=== PATIENT | female | born 1960 | race Caucasian/White ===

== ENCOUNTER 2018-06-13 00:09 | Emergency (ER) | payer OTHER ==
[2018-06-13] MEDS ORDERED: oxyCODONE TAB* 5 MG TAB PO ONE (00:32)
[2018-06-13] MEDS ORDERED: Diazepam TAB(*) 5 MG PO ONE (00:33)
--- NOTE | 2018-06-13 01:25 | ED ---
Back Pain - HPI Summary HPI Summary: Patient complains of coughing tonight and hearing a pop in her right side with subsequent pain all along her right side and right back. Denies any other symptoms pain or injury. Medical history is COPD, fibromyalgia, arthritis, chronic back pain, DM. - History of Current Complaint Chief Complaint: EDGeneral Stated Complaint: GENERAL ILLNESS Time Seen by Provider: 06/13/18 00:19 Hx Obtained From: Patient Onset/Duration: Sudden Onset Onset/Duration: Started Hours Ago Timing: Constant Back Pain Location: Is Discrete @ Severity Initially: Severe Severity Currently: Severe Pain Intensity: 10 Pain Scale Used: 0-10 Numeric Character: Sharp, Aching, Throbbing Aggravating Symptom(s): Movement Associated Signs And Symptoms: Positive: Negative - Allergies/Home Medications Allergies/Adverse Reactions: Allergies Allergy/AdvReac Type Severity Reaction Status Date / Time No Known Allergies Allergy Verified 07/26/12 09:55 PMH/Surg Hx/FS Hx/Imm Hx Endocrine/Hematology History: Denies: Hx Anticoagulant Therapy Cardiovascular History: Denies: Hx Pacemaker/ICD History: Denies: Hx Dialysis Sensory History: Denies: Hx Hearing Aid Opthamlomology History: Denies: Hx Eye Prosthesis EENT History: Denies: Hx Deafness Neurological History: Reports: Other Neuro Impairments/Disorders - CHRONIC BACK PAIN Denies: Hx Dementia Psychiatric History: Denies: Hx Panic Disorder - Surgical History Surgery Procedure, Year, and Place: GALLBLADDER; APPENDECTOMY; LEGS- REPAIRED FOR "BOW LEGGED" Infectious Disease History: No Infectious Disease History: Denies: Traveled Outside the [place] in Last 30 Days - Social History Alcohol Use: None Substance Use Type: Reports: None Hx Tobacco Use: Yes Smoking Status (MU): Heavy Every Day Tobacco Smoker Review of Systems Constitutional: Negative Eyes: Negative ENT: Negative Cardiovascular: Negative Respiratory: Negative Gastrointestinal: Negative Genitourinary: Negative Musculoskeletal: Other Skin: Negative Neurological: Negative Psychological: Normal All Other Systems Reviewed And Are Negative: Yes Physical Exam - Summary Physical Exam Summary: Pain to palpation along right side chest wall, paraspinal muscles of T-spine on right side. Patient breathing rapidly, as she states it hurts to when she breathes. No signs of ecchymosis, erythema, deformity, swelling noted. Mild wheezing bilaterally. Triage Information Reviewed: Yes Vital Signs On Initial Exam: Initial Vitals Temp Pulse Resp BP Pulse Ox 97.2 F 99 30 193/110 94 06/13/18 00:11 06/13/18 00:11 06/13/18 00:11 06/13/18 00:11 06/13/18 00:11 Vital Signs Reviewed: Yes Appearance: Positive: Well-Appearing Skin: Positive: Warm Head/Face: Positive: Normal Head/Face Inspection Eyes: Positive: Normal Neck: Positive: Supple Respiratory/Lung Sounds: Positive: Wheezes - Mild wheezing. Bilaterally Cardiovascular: Positive: Normal Abdomen Description: Positive: Nontender Musculoskeletal: Positive: Normal Neurological: Positive: Normal Psychiatric: Positive: Normal AVPU Assessment: Alert - Barrie Coma Scale Best Eye Response: 4 - Spontaneous Best Motor Response: 6 - Obeys Commands Best Verbal Response: 5 - Oriented Coma Scale Total: 15 Diagnostics - Vital Signs Vital Signs Temp Pulse Resp BP Pulse Ox 06/13/18 00:37 30 06/13/18 00:11 97.2 F 99 30 193/110 94 - Laboratory Lab Statement: Any lab studies that have been ordered have been reviewed, and results considered in the medical decision making process. Back Pain Course/Dx - Course Course Of Treatment: Patient complains of coughing tonight and hearing a pop in her right side with subsequent pain all along her right side and right back. Denies any other symptoms pain or injury. Medical history is COPD, fibromyalgia , arthritis, chronic back pain, DM. Physical exam:Pain to palpation along right side chest wall, paraspinal muscles of T-spine on right side. Patient breathing rapidly, as she states it hurts to when she breathes. No signs of ecchymosis, erythema, deformity, swelling noted. Mild wheezing bilaterally. Respiratory rate 30. Vital signs within normal limits otherwise. Rib and chest x-ray appears negative for acute process. Patient symptoms improved somewhat with Valium 5 mg by mouth. Lidoderm patch 5% also administered. Rx for same Diagnosis most likely muscle spasm of the back or costochondritis. - Diagnoses Provider Diagnoses: Costochondritis Discharge - Sign-Out/Discharge Documenting (check all that apply): Patient Departure Patient Received Moderate/Deep Sedation with Procedure: No - Discharge Plan Condition: Stable Disposition: HOME Prescriptions: Lidocaine PATCH 5%* [Lidoderm 5% Patch*] 2 patch TRANSDERM DAILY 2 Days #4 patch Patient Education Materials: Costochondritis (ED) Referrals: No Primary Care Phys,NOPCP [Primary Care Provider] - Additional Instructions: Use lidocaine patch for pain control. May also take ibuprofen for pain. Follow -up with primary care. Return to the ED for any new or worsening symptoms - Billing Disposition and Condition Condition: STABLE Disposition: Home
[2018-06-13] MEDS ORDERED: Lidocaine PATCH 5%* 1 PATCH ONE (01:50)
[2018-06-13] MEDS ORDERED: Lidocaine PATCH 5%* 1 PATCH TRANSDERM SCH (02:00)
[2018-06-13 02:17] VITALS: BP 161/112
[2018-06-13] MEDS ORDERED: Lidocaine Patch REMOVE* 1 NOTE MISC SCH (21:00)
== END 2018-06-13 02:10 | disposition home or self-care (01) ==
LOC: ED 00:09
DX: M94.0 Chondrocostal junction syndrome [Tietze] (principal); F17.210 Nicotine dependence, cigarettes, uncomplicated; J44.9 Chronic obstructive pulmonary disease, unspecified; M79.7 Fibromyalgia; G89.29 Other chronic pain; M54.9 Dorsalgia, unspecified; E11.9 Type 2 diabetes mellitus without complications
CPT/HCPCS: 71111; 99282; A9270-GY